=== PATIENT | male | born 1975 | race Caucasian/White ===

== ENCOUNTER 2024-07-01 14:30 | Emergency (ER) | payer OTHER, SELFPAY ==
[2024-07-01 14:46] VITALS: BP 150/96; PULSE 94; TEMP 37.1; O2SAT 98; BMI 27.3
[2024-07-01 15:04] VITALS: PULSE 96
--- NOTE | 2024-07-01 15:11 | ECG_ITS ---
[facility] Test Date: 2024-07-01 Pat Name: CHUY SABILLON Department: Room: - Gender: Male Director Of Safety: : 1975 Requested By: 1030 Order Number: [id number] Reading MD: DANK MARTINEZ Measurements Intervals [place] Rate: 92 P: 50 TN: 176 QRS: 5 QRSD: 86 T: 34 QT: 342 QTc: 392 Interpretive Statements 1100 Sinus rhythm 4068 Nonspecific [place] abnormality 9130 borderline ECG Compared to ECG 01/01/2020 17:27:29 No significant changes Electronically Signed On 07-01-2024 20:49:10 EST by DANK MARTINEZ
--- NOTE | 2024-07-01 15:12 | ED_ITS ---
HPI - Psych General Chief Complaint: Psychiatric Symptoms Stated Complaint: SUICIDAL IDEATION Time Seen by Provider: 07/01/24 15:06 Source: Reports patient Mode of arrival: walk-in Limitations: Reports no limitations History of Present Illness HPI Narrative: 49-year-old male presents to the emergency department for suicidal thoughts. He states he has had thoughts of crashing his car into a tree. He has not acted on those thoughts. He states that he has been under a lot of stress recently and has been drinking 2 fifths of vodka every day. Denies drug use or overdosing on pills. He is on an antidepressant and states he has been taking it. Related Data Home Medications ?Medication ?Instructions ?Recorded ?Confirmed atorvastatin 40 mg tablet 40 mg PO DAILY 07/01/24 07/01/24 losartan 25 mg tablet 25 mg PO DAILY 07/01/24 07/01/24 paroxetine HCl 20 mg tablet 20 mg PO DAILY 07/01/24 07/01/24 testosterone cypionate 200 mg/mL 200 mg IM .Q28 days 07/01/24 07/01/24 intramuscular oil trazodone 50 mg tablet 50 mg PO .QHS 07/01/24 07/01/24 Allergies Allergy/AdvReac Type Severity Reaction Status Date / Time amoxicillin Allergy Hives Verified 07/01/24 14:46 Review of Systems ROS Narrative A ten point review of systems is negative except as noted above. PFSH PFSH Social History Little interest or pleasure in doing things: several days Feeling down, depressed, or hopeless: more than half the days Exam Narrative Exam Narrative: Nurses note and vital signs reviewed and patient is not hypoxic. General: The patient appears well and in no apparent distress. Patient is resting comfortably on cart. Skin: Warm, dry, no pallor noted. There is no rash noted. Head: Normocephalic, atraumatic Eye: Normal conjunctiva, no drainage Ears, Nose, Mouth, and Throat: oral mucosa is moist. Nares patent. Cardiovascular: Regular Rate and Rhythm Respiratory: Patient is in no distress, no accessory muscle use, lungs are clear to auscultation, no wheezing, rales or rhonchi Back: non-tender GI: Soft and nontender. No hepatomegaly Musculoskeletal: The patient has no evidence of calf tenderness, no pitting edema, symmetrical pulses noted bilaterally Neurological: A&O, normal speech Psychiatric: Cooperative Constitutional Vital Signs, click to edit/add: Last Vital Signs Temp 98.8 F 07/01/24 14:46 Pulse 96 H 07/01/24 15:04 Resp 13 07/01/24 15:04 BP 161/104 H 07/01/24 22:59 Pulse Ox 94 L 07/01/24 22:59 O2 Del Method Room Air 07/01/24 14:46 Course Vital Signs Vital signs: Vital Signs Temperature 98.8 F 07/01/24 14:46 Pulse Rate 94 H 07/01/24 14:46 Respiratory Rate 20 07/01/24 14:46 Blood Pressure 150/96 H 07/01/24 14:46 Pulse Oximetry 98 07/01/24 14:46 Oxygen Delivery Method Room Air 07/01/24 14:46 Temperature 98.8 F 07/01/24 14:46 Pulse Rate 96 H 07/01/24 15:04 Respiratory Rate 13 07/01/24 15:04 Blood Pressure 161/104 H 07/01/24 22:59 Pulse Oximetry 94 L 07/01/24 22:59 Oxygen Delivery Method Room Air 07/01/24 14:46 MDM - Psych Lab Data Labs: Lab Results 07/01/24 07/01/24 Range/Units 15:09 15:28 WBC 4.3 (4.0-11.0) 10^3/uL RBC 5.27 (4.70-6.10) 10^6/uL Hgb 16.3 (14.0-18.0) g/dL Hct 47.9 (42.0-54.0) % MCV 90.9 (80.0-94.0) fL MCH 30.9 (25.9-34.0) pg MCHC 34.0 (29.9-35.2) g/dL RDW 14.2 (11.0-15.0) % Plt Count 205 (150-450) 10^3/uL MPV 9.3 L (9.5-13.5) fL Neut % (Auto) 62.8 (43.0-75.0) % Lymph % (Auto) 26.1 (20.5-60.0) % [place] % (Auto) 8.1 (1.7-12.0) % Eos % (Auto) 1.8 (0.9-7.0) % Baso % (Auto) 1.2 (0.2-2.0) % Neut # (Auto) 2.7 (1.4-6.5) 10^3/uL Lymph # (Auto) 1.1 L (1.2-3.8) 10^3/uL [place] # (Auto) 0.4 (0.3-0.8) 10^3/uL Eos # (Auto) 0.1 (0.0-0.7) 10^3/uL Baso # (Auto) 0.1 (0.0-0.1) 10^3/uL Abs Immat Gran (auto) 0.00 (0.00-0.03) 10^3/uL Imm/Tot Granulo (auto) 0.0 (0.0-0.5) % Sodium 140 (136-145) mmol/L Potassium 3.6 (3.5-5.1) mmol/L Chloride 103 (98-107) mmol/L Carbon Dioxide 29.0 (21.0-32.0) mmol/L Anion Gap 11.6 BUN 9.0 (7.0-18.0) mg/dL Creatinine 0.97 (0.70-1.30) mg/dL Est GFR ( Amer) >60 (>=60 mL/min/1.73m^2) Est GFR (Non-Af Amer) >60 (>=60 mL/min/1.73m^2) BUN/Creatinine Ratio 9.3 Glucose 112 H (74-106) mg/dL Calcium 8.7 (8.5-10.1) mg/dL Total Bilirubin 0.6 (0.2-1.0) mg/dL Direct Bilirubin 0.2 (0.0-0.2) mg/dL AST 56 H (15-37) U/L ALT 59 (16-63) U/L Alkaline Phosphatase 94 (46-116) U/L Total Protein 7.7 (6.4-8.2) g/dL Albumin 3.6 (3.4-5.0) g/dL Globulin 4.1 g/dL Albumin/Globulin Ratio 0.9 Urine Color Lt. yellow (YELLOW) Urine Clarity Clear (CLEAR) Urine pH 6.5 (5.0-9.0) Ur Specific [place] 1.020 (1.005-1.025) Urine Protein 30 A (NEG/TRACE) mg/dL Urine Glucose (UA) Negative (NEGATIVE) mg/dL Urine Ketones Negative (NEGATIVE) mg/dL Urine Occult Blood Moderate A (NEGATIVE) Urine Nitrite Negative (NEGATIVE) Urine Bilirubin Negative (NEGATIVE) Urine Urobilinogen 0.2 (0.2-1.0) EU/dL Ur Leukocyte Esterase Trace A (NEGATIVE) Urine RBC 0-2 (0-2) #/HPF Urine WBC 0-2 A (NONE SEEN) #/HPF Ur Squamous Epith Cells None seen (NONE/RARE) #/LPF Urine Crystals None seen (None Seen) #/HPF Urine Bacteria Trace A (NONE SEEN) #/HPF Urine Casts None seen (NONE SEEN) #/LPF Urine Mucus Trace A (NONE SEEN) Ur Culture Indicated? No Salicylates <2.8 (<=19.9) mg/dL Urine Opiates Screen Negative (NEGATIVE) Ur Buprenorphine Scrn Negative (NEGATIVE) Ur Oxycodone Screen Negative (NEGATIVE) Urine Methadone Screen Negative (NEGATIVE) Acetaminophen <2.0 L (10.0-30.0) ug/mL Ur Barbiturates Screen Negative (NEGATIVE) U Tricyclic Antidepress Negative (NEGATIVE) Ur Phencyclidine Scrn Negative (NEGATIVE) Ur Amphetamines Screen Negative (NEGATIVE) U Methamphetamines Scrn Negative (NEGATIVE) U Benzodiazepines Scrn Negative (NEGATIVE) Urine Cocaine Screen Negative (NEGATIVE) U Cannabinoids Screen Negative (NEGATIVE) Ethanol Quant 259 mg/dL ECG Data Attestation: I personally reviewed and interpreted this ECG as follows: (EKG on my interpretation shows sinus rhythm with a rate of 92 and no acute change) Discharge Plan Discharge Chief Complaint: Psychiatric Symptoms Clinical Impression: Suicidal ideation, Alcohol intoxication in active alcoholic Patient Disposition: [facility] Time of Disposition Decision: 20:03 Discharge Location: [facility] Mode of Transportation: Mental Health Car Discharge Date/Time: 07/02/24 01:17
[2024-07-01 15:26] LABS: Bilirubin Urine NEGATIVE (NEGATIVE); Blood Urine MODERATE (NEGATIVE); Clarity Urine CLEAR (CLEAR); Color Urine LT. YELLOW (YELLOW); Glucose Urine UA NEGATIVE (NEGATIVE); Ketones Urine NEGATIVE (NEGATIVE); Leukocyte Esterase Urine TRACE (NEGATIVE); Nitrite Urine NEGATIVE (NEGATIVE); Protein Urine 30 mg/dL (NEG/TRACE); Urobilinogen Urine 0.2 EU/dL (0.2-1.0); pH Urine 6.5 (5.0-9.0)
[2024-07-01 15:32] LABS: Bacteria Urine TRACE #/HPF (NONE SEEN); Cast Seen? NONE SEEN #/LPF (NONE SEEN); Crystals Seen? None Seen #/HPF (None Seen); Mucus Urine TRACE (NONE SEEN); RBC Urine 0-2 #/HPF (0-2); Squamous Epithelial Cell Urine NONE SEEN #/LPF (NONE/RARE); WBC Urine 0-2 #/HPF (NONE SEEN)
[2024-07-01 15:33] LABS: Urine Culture Indicated NO
[2024-07-01 15:34] LABS: Amphetamine Screen Urine NEGATIVE (NEGATIVE); Barbiturates Screen Urine NEGATIVE (NEGATIVE); Benzodiazepines Screen Urine NEGATIVE (NEGATIVE); Buprenorphine Screen Urine NEGATIVE (NEGATIVE); Cannabinoid Screen Urine NEGATIVE (NEGATIVE); Cocaine Screen Urine NEGATIVE (NEGATIVE); Methadone Screen Urine NEGATIVE (NEGATIVE); Methamphetamines Screen Urine NEGATIVE (NEGATIVE); Opiate Screen Urine NEGATIVE (NEGATIVE); Oxycodone Screen Urine NEGATIVE (NEGATIVE); Phencyclidine Screen Urine NEGATIVE (NEGATIVE); Tricyclic Antidepressant Urine NEGATIVE (NEGATIVE)
[2024-07-01 15:35] LABS: Basophils Absolute Auto 0.1 10^3/uL (0.0-0.1); Basophils Percent Auto 1.2 % (0.2-2.0); Eosinophils Absolute Auto 0.1 10^3/uL (0.0-0.7); Eosinophils Percent Auto 1.8 % (0.9-7.0); Hematocrit 47.9 % (42.0-54.0); Hemoglobin 16.3 g/dL (14.0-18.0); Lymphocytes Absolute Auto 1.1 10^3/uL (1.2-3.8); Lymphocytes Percent Auto 26.1 % (20.5-60.0); Mean Corpuscular Hemoglobin 30.9 pg (25.9-34.0); Mean Corpuscular Volume 90.9 fL (80.0-94.0); Mean Platelet Volume 9.3 fL (9.5-13.5); Monocytes Absolute Auto 0.4 10^3/uL (0.3-0.8); Monocytes Percent Auto 8.1 % (1.7-12.0); Neutrophils Absolute Auto 2.7 10^3/uL (1.4-6.5); Neutrophils Percent Auto 62.8 % (43.0-75.0); Platelet Count 205 10^3/uL (150-450); Red Blood Count 5.27 10^6/uL (4.70-6.10); Red Cell Distribution Width 14.2 % (11.0-15.0); White Blood Count 4.3 10^3/uL (4.0-11.0)
--- NOTE | 2024-07-01 15:48 | PC.NURSE ---
Call placed to [facility], they will call back as they are busy at this time.
[2024-07-01 15:51] LABS: Alanine Aminotransferase 59 U/L (16-63); Albumin Globulin Ratio 0.9; Albumin Level 3.6 g/dL (3.4-5.0); Alkaline Phosphatase 94 U/L (46-116); Anion Gap 11.6; Aspartate Amino Transferase 56 U/L (15-37); BUN Creatinine Ratio 9.3; Bilirubin Direct 0.2 mg/dL (0.0-0.2); Bilirubin Total 0.6 mg/dL (0.2-1.0); Calcium 8.7 mg/dL (8.5-10.1); Chloride 103 mmol/L (98-107); Estimated GFR (African America >60 (>=60 mL/min/1.73m^2); Estimated GFR (Non-African Ame >60 (>=60 mL/min/1.73m^2); Ethanol 259 mg/dL; Globulin 4.1 g/dL; Glucose 112 mg/dL (74-106); Potassium 3.6 mmol/L (3.5-5.1); Salicylate <2.8 mg/dL (<=19.9); Sodium 140 mmol/L (136-145); Total Protein 7.7 g/dL (6.4-8.2)
[2024-07-01 15:52] LABS: Acetaminophen <2.0 ug/mL (10.0-30.0)
--- NOTE | 2024-07-01 16:01 | PC.NURSE ---
Speaking with Sushma at [facility] at this time.
[2024-07-01] MEDS: LORAZEPAM 1 MG TABLET PO ×2 (16:39→23:41)
[2024-07-01] MEDS: LORAZEPAM 0.5 MG TABLET 1 MG PO (19:59)
--- NOTE | 2024-07-01 20:00 | ED.PSYCH1 ---
HPI - Psych General Chief Complaint: Psychiatric Symptoms Stated Complaint: SUICIDAL IDEATION Time Seen by Provider: 07/01/24 15:06 Source: Reports patient Mode of arrival: walk-in Limitations: Reports no limitations History of Present Illness HPI Narrative: This 49-year-old male with a history of alcohol dependence was signed out to me at shift change. He presents for suicidal ideation. His alcohol was elevated at 259. U tox is negative. The remainder of his labs were normal. He was medicated with a dose of Ativan in the emergency department. He was evaluated by [facility] with recommendation for hospitalization. She requested additional Ativan so that he does not experience alcohol withdrawal and to help him calm down. He is signing voluntarily to go to [address] Related Data Home Medications ?Medication ?Instructions ?Recorded ?Confirmed atorvastatin 40 mg tablet 40 mg PO DAILY 07/01/24 07/01/24 losartan 25 mg tablet 25 mg PO DAILY 07/01/24 07/01/24 paroxetine HCl 20 mg tablet 20 mg PO DAILY 07/01/24 07/01/24 testosterone cypionate 200 mg/mL 200 mg IM .Q28 days 07/01/24 07/01/24 intramuscular oil trazodone 50 mg tablet 50 mg PO .QHS 07/01/24 07/01/24 Allergies Allergy/AdvReac Type Severity Reaction Status Date / Time amoxicillin Allergy Hives Verified 07/01/24 14:46 PFSH PFSH Social History Little interest or pleasure in doing things: several days Feeling down, depressed, or hopeless: more than half the days Exam Constitutional Vital Signs, click to edit/add: Last Vital Signs Temp 98.8 F 07/01/24 14:46 Pulse 94 H 07/01/24 14:46 Resp 20 07/01/24 14:46 BP 150/96 H 07/01/24 14:46 Pulse Ox 98 07/01/24 14:46 O2 Del Method Room Air 07/01/24 14:46 Course Vital Signs Vital signs: Vital Signs Temperature 98.8 F 07/01/24 14:46 Pulse Rate 94 H 07/01/24 14:46 Respiratory Rate 20 07/01/24 14:46 Blood Pressure 150/96 H 07/01/24 14:46 Pulse Oximetry 98 07/01/24 14:46 Oxygen Delivery Method Room Air 07/01/24 14:46 Temperature 98.8 F 07/01/24 14:46 Pulse Rate 94 H 07/01/24 14:46 Respiratory Rate 20 07/01/24 14:46 Blood Pressure 150/96 H 07/01/24 14:46 Pulse Oximetry 98 07/01/24 14:46 Oxygen Delivery Method Room Air 07/01/24 14:46 MDM - Psych Lab Data Labs: Lab Results 07/01/24 07/01/24 Range/Units 15:09 15:28 WBC 4.3 (4.0-11.0) 10^3/uL RBC 5.27 (4.70-6.10) 10^6/uL Hgb 16.3 (14.0-18.0) g/dL Hct 47.9 (42.0-54.0) % MCV 90.9 (80.0-94.0) fL MCH 30.9 (25.9-34.0) pg MCHC 34.0 (29.9-35.2) g/dL RDW 14.2 (11.0-15.0) % Plt Count 205 (150-450) 10^3/uL MPV 9.3 L (9.5-13.5) fL Neut % (Auto) 62.8 (43.0-75.0) % Lymph % (Auto) 26.1 (20.5-60.0) % [place] % (Auto) 8.1 (1.7-12.0) % Eos % (Auto) 1.8 (0.9-7.0) % Baso % (Auto) 1.2 (0.2-2.0) % Neut # (Auto) 2.7 (1.4-6.5) 10^3/uL Lymph # (Auto) 1.1 L (1.2-3.8) 10^3/uL [place] # (Auto) 0.4 (0.3-0.8) 10^3/uL Eos # (Auto) 0.1 (0.0-0.7) 10^3/uL Baso # (Auto) 0.1 (0.0-0.1) 10^3/uL Abs Immat Gran (auto) 0.00 (0.00-0.03) 10^3/uL Imm/Tot Granulo (auto) 0.0 (0.0-0.5) % Sodium 140 (136-145) mmol/L Potassium 3.6 (3.5-5.1) mmol/L Chloride 103 (98-107) mmol/L Carbon Dioxide 29.0 (21.0-32.0) mmol/L Anion Gap 11.6 BUN 9.0 (7.0-18.0) mg/dL Creatinine 0.97 (0.70-1.30) mg/dL Est GFR ( Amer) >60 (>=60 mL/min/1.73m^2) Est GFR (Non-Af Amer) >60 (>=60 mL/min/1.73m^2) BUN/Creatinine Ratio 9.3 Glucose 112 H (74-106) mg/dL Calcium 8.7 (8.5-10.1) mg/dL Total Bilirubin 0.6 (0.2-1.0) mg/dL Direct Bilirubin 0.2 (0.0-0.2) mg/dL AST 56 H (15-37) U/L ALT 59 (16-63) U/L Alkaline Phosphatase 94 (46-116) U/L Total Protein 7.7 (6.4-8.2) g/dL Albumin 3.6 (3.4-5.0) g/dL Globulin 4.1 g/dL Albumin/Globulin Ratio 0.9 Urine Color Lt. yellow (YELLOW) Urine Clarity Clear (CLEAR) Urine pH 6.5 (5.0-9.0) Ur Specific [place] 1.020 (1.005-1.025) Urine Protein 30 A (NEG/TRACE) mg/dL Urine Glucose (UA) Negative (NEGATIVE) mg/dL Urine Ketones Negative (NEGATIVE) mg/dL Urine Occult Blood Moderate A (NEGATIVE) Urine Nitrite Negative (NEGATIVE) Urine Bilirubin Negative (NEGATIVE) Urine Urobilinogen 0.2 (0.2-1.0) EU/dL Ur Leukocyte Esterase Trace A (NEGATIVE) Urine RBC 0-2 (0-2) #/HPF Urine WBC 0-2 A (NONE SEEN) #/HPF Ur Squamous Epith Cells None seen (NONE/RARE) #/LPF Urine Crystals None seen (None Seen) #/HPF Urine Bacteria Trace A (NONE SEEN) #/HPF Urine Casts None seen (NONE SEEN) #/LPF Urine Mucus Trace A (NONE SEEN) Ur Culture Indicated? No Salicylates <2.8 (<=19.9) mg/dL Urine Opiates Screen Negative (NEGATIVE) Ur Buprenorphine Scrn Negative (NEGATIVE) Ur Oxycodone Screen Negative (NEGATIVE) Urine Methadone Screen Negative (NEGATIVE) Acetaminophen <2.0 L (10.0-30.0) ug/mL Ur Barbiturates Screen Negative (NEGATIVE) U Tricyclic Antidepress Negative (NEGATIVE) Ur Phencyclidine Scrn Negative (NEGATIVE) Ur Amphetamines Screen Negative (NEGATIVE) U Methamphetamines Scrn Negative (NEGATIVE) U Benzodiazepines Scrn Negative (NEGATIVE) Urine Cocaine Screen Negative (NEGATIVE) U Cannabinoids Screen Negative (NEGATIVE) Ethanol Quant 259 mg/dL Discharge Plan Discharge Chief Complaint: Psychiatric Symptoms Clinical Impression: Suicidal ideation, Alcohol intoxication in active alcoholic Patient Disposition: [facility] Time of Disposition Decision: 20:03 Discharge Location: [facility] Mode of Transportation: Mental Health Car Prescriptions / Home Meds: No Action atorvastatin 40 mg tablet 40 mg PO DAILY losartan 25 mg tablet 25 mg PO DAILY paroxetine HCl 20 mg tablet 20 mg PO DAILY Patient Comments: Has not taken in several weeks testosterone cypionate 200 mg/mL oil 200 mg IM .Q28 days trazodone 50 mg tablet 50 mg PO .QHS Print Language: [place] Referrals: Cisco Nieto ND [Primary Care Provider] - 1 week
[2024-07-01 22:59] VITALS: BP 161/104; O2SAT 94
== END 2024-07-02 01:17 ==
PROVIDERS: Emergency Medicine; Emergency Provider Emergency Medicine; PCP Student in an Organized Health Care Education/Training Program
DX: R45.851 Suicidal ideations (principal); F32.A Depression, unspecified; F10.229 Alcohol dependence with intoxication, unspecified; Y90.8 Blood alcohol level of 240 mg/100 ml or more
CPT/HCPCS: 36415; 80048; 80076; 80179; 80307; 80320; 80329; 81001; 85025; 93005; 99285

== ENCOUNTER 2024-10-22 01:30 | Emergency (ER) | payer OTHER, SELFPAY ==
--- OUTSIDE RECORDS SUMMARY | 2024-07-17 14:41 | XMS_ITS ---
Author Organization OHIP Care Team Providers Care Residential Interior Designer Name Role Phone DEVORA CORRALES Attending Unavailable SAVANNA, MUHAMID M Referring Unavailable SAVANNA, MUHAMID M Primary Care Unavailable CRESENCIO RICHARDSON Attending Unavailable SAVANNA, MUHAMID M Referring Unavailable SAVANNA, MUHAMID M Primary Care Unavailable SAVANNA, MUHAMID M Attending Unavailable ASVANNA, MUHAMID M Referring Unavailable SAVANNA, MUHAMID M Primary Care Unavailable Savanna, Muhamid Primary Care Unavailable Betty Mirmi Admitting Unavailable Kyle Mir Attending Unavailable Irais Payne Attending Unavailable NON STAFF Primary Care Unavailable Irais Payne Admitting Unavailable Savanna, Muhamid Primary Care Unavailable Dillan Valdez Admitting Unavailab le Dillan Valdez Attending Unavailab le Purpose PROBLEMS DATE TYPE CONDITION / CODE ATTENDING STATUS [facility] 10/07/2022 Unknown Essential (prima ry) hypertension / I10(ICD-10) YUE CORRALESID M Active [facility] 07/17/2024 Unknown Attention-defici t hyperactivity disorder, unspecified type / F90.9(ICD-10) DEVORA CORRALES M Active [facility] 07/17/2024 Unknown Atherosclerotic heart disease of [place] coronary artery without angina pectoris / I25.10(ICD-10) [facility] 07/17/2024 Unknown Med Management / [facility](A[facility]) [facility] 07/02/2024 Unknown Major depressive disorder, recurrent, unspecified / F33.9(ICD-10) [facility] 07/02/2024 Unknown Major depressive disorder, single episode, unspecified / F32.9(ICD-10) [facility] 07/02/2024 Unknown Alcohol use, unspecified, uncomplicated / F10.90(ICD-10) [facility] 12/04/2023 Unknown Dizziness and gi ddiness / R42(ICD-10) Irais Payne [facility] 11/01/2023 Unknown Endocrine disord er, unspecified / E34.9(ICD-10) [facility] PROCEDURES No Procedure Records Found VITAL SIGNS No Vital Signs Records Found RESULTS ECG 12 LEAD ECG Observed: 07/02/2024 7:33 AM Status: COMPLETED Source: [facility] [place] [address] Electrocardiograph Report Signed Patient: Román Sabillon MR#: [id number] : 1975 Acct:[id number] Age/Sex: 49 / M ADM Date: 07/02/24 Loc: Room: [address] [place] [address] Type: ADM IN Attending Dr: Kyle Mir MD Ordering Provider: Kyle Mir MD Date of Service: 07/02/2409/20/499 ECG/ECG 12 lead ECG: ANTIPSYCHOTIC THERAPY Copies to: Test Reason : Blood Pressure : */* mmHG Vent. Rate : 76 BPM Atrial Rate : 76 BPM P-R Int : 166 ms QRS Dur : 100 ms QT Int : 378 ms P-R-T Axes : 46 32 1 degrees QTcB Int : 425 ms Normal sinus rhythm with sinus arrhythmia Normal ECG When compared with ECG of 08-Brian-2024 20:15, No significant change was found Confirmed by MICHELLE LEVY, MATEO ([id number]) on 07/02/2024 6:27:32 PM Referred By: Electronically Signed By: MATEO MATTHEWS MD Transcribed By: MUS Signed By Mateo Matthews MD 0 07/02/24 1827 LIPID PANEL Collected: 07/02/2024 5:18 AM Status: F Source: [facility] TYPE CODE TESTS RESULT OUT OF RANGE REFERENCE UNITS LAB CHOL Cholesterol 239 High 140-200 mg/dL Result Comment: Chol less th an 200 mg/dl low risk Chol 201-239 mg/dl borderline risk Chol 240 mg/dl and greater high risk LAB HDL HDL Cholesterol 119 High 23-92 mg/dL Result Comment: HDL CHOL ATP -III CLASSIFICATION Cardiovascular Risk HDL > or equal to 60 mg/dL LOW HDL < 40 mg/dL HIGH LAB TRIG W REF Triglyceride w/Reflex 73 Normal 0-149 mg/dL Result Comment: TRIG ATP III CLASSIFICATION TRIG less than 150 mg/dL Normal TRIG 150-199 mg/dL Borderline high TRIG 200-500 mg/dL High TRIG greater than 500 mg/dL Very high Standard traceable to the Center for Disease Conrtrol and Prevention (CDC) test method. LAB LDLC LDL Cholesterol,Calc ulated 105 High 0-100 mg/dL Result Comment: LDL ATP III CLASSIFICATION LDL less than 100 mg/dL Optimal LDL 100-129 mg/dL Near or above optimal LDL 130-159 mg/dL Borderline high LDL 160-189 mg/dL High LDL greater than 189 mg/dL Very high LAB VLDL VLDL CHOLESTEROL 14 mg/dL LAB CHLHDL Chol/HDL Ratio 2.0 <5.0 Performed By: #### [id number], TSH3 wRFLX, LIPID #### [facility] [id number] [facility] THYROID STIM HORMONE W/RFLX Collected: 07/02/2024 5:18 AM Status: F Source: [facility] TYPE CODE TESTS RESULT OUT OF RANGE REFERENCE UNITS LAB TSH3 wRFLX Thyroid Stim Hormone w/Rflx 3.09 Normal 0.45-5.33 u[iU]/mL Performed By: #### [id number], TSH3 wRFLX, LIPID #### [facility] [address] [id number] [facility] VITAMIN D 25 HYDROXY TOTAL Collected: 07/02/2024 5:18 AM Status: F Source: [facility] TYPE CODE TESTS RESULT OUT OF RANGE REFERENCE UNITS LAB [id number] Vitamin D 25 Hydroxy Total 20.2 Low 30-100 ng/mL Result Comment: VITAMIN D ST ATUS 25(OH)VITAMIN D RANGE (ng/mL) Deficient <20 Insufficient 20 to <30 Sufficient 30 to 100 Reference: Gina MF,Christine NC, Farhana FERRARA, et al. Evaluation,treatment, and prevention of vitamin D deficiency; an Endocrine Society clinical practice guideline. JCEM. 2010; 96(7):1911-30. PERFORMED BY: [place] [address] PATHOLOGIST FIRE POT OPERATOR MAIA OCAMPO M.D. Performed By: #### [id number], TSH3 wRFLX, LIPID #### [place] [id number] [facility] XR CHEST 1V PORTABLE Observed: 9:04 AM Status: COMPLETED Source: [facility] Main [place] [id number] XRay Report Signed Patient: Román Sabillon MR#: [id number] : 1975 Acct:[id number] Age/Sex: 48 / M ADM Date: 12/04/23 Loc: ER Room: Type: [facility] ER Attending Dr: Copies to: Irais Payne MD Ordering Provider: Irais Payne MD Date of Service: 12/05/23 XR/XR chest 1V portable: Dizziness XR chest 1V portable 12/05/2023 2:24 AM SIGNS AND SYMPTOMS: Dizziness, nausea, vomiting PROTOCOL: Frontal radiograph chest COMPARISON: None FINDINGS: The trachea is midline. The heart and mediastinal structures are within normal limits. There is linear scarring or atelectasis in the right perihilar region with mild interstitial prominence bilaterally. The lung parenchyma is clear, otherwise. The bony thorax is intact. XR/XR chest 1V portable IMPRESSION: There is linear scarring or atelectasis in the right perihilar region with mild interstitial prominence bilaterally. The lung parenchyma is clear, otherwise. Impression dictated by: Álvaro Edgar M.D.12/05/2023 9:08 AM Dictation Location: [place] [address] Transcribed By: [facility] 12/05/23907 Dictated By: Álvaro Edgar II, MD 12/05/23903 Signed By: <Electronically signed by Álvaro Edgar II, MD in OV> 12/05/23907 DIPSTICK AND MICROSCOPIC Collected: 01/2024 1:55 AM Status: F Source: [facility] Order Comment: Name Collecti on Type:: Clean-Voided Midstream TYPE CODE TESTS RESULT OUT OF RANGE REFERENCE UNITS LAB UCOL Color,Urine Yellow Yellow LAB UAPP Appearance,Ur ine Clear Clear LAB USG Specificy Micro,Urine 1.027 Normal 1.001-1.030 LAB UPH pH,Urine 7.0 Normal 5.0-9.0 LAB ULE Leukocyte Esterase,Urin e Negative Negative LAB UNIT Nitrite,Urine Negative Negative LAB UPRO Protein,Urine 30 High Negative mg/dL LAB UGL Glucose,Urine (UA) Normal Normal LAB UKET Ketones,Urine Negative Negative LAB UURO Urobilinogen, Urine Normal Normal LAB UBIL Bilirubin,Uri ne Negative Negative LAB UBLD Occult Blood,Urine 1+ High Negative Result Comment: PERFORMED BY : [place] [address] PATHOLOGIST FIRE POT OPERATOR JAUN WEISS M.D. LAB URBC RBC,Urine 5-9 High 0-4 LAB UWBC WBC,Urine 1-2 0-4 LAB UBACT Bacteria,Urin e None Seen None Seen LAB UHYALC Hyaline Casts,Urine None 0-8 LAB MUCUS Mucus,Urine 3+ Abnormal Alert Result Comment: PERFORMED BY : [address] [address] PATHOLOGIST FIRE POT OPERATOR JAUN WEISS M.D. Performed By: #### ADDONUAPL #### [place] [id number] [facility] TROPONIN I HIGH SENSITIVITY Collected: 12/05/2023 12: 30 AM Status: F Source: [facility] TYPE CODE TESTS RESULT OUT OF RANGE REFERENCE UNITS LAB HS TROP Troponin I High Sensitivity 4.2 Normal 0.0-20.0 pg/mL Result Comment: PERFORMED BY : [place] [address] PATHOLOGIST FIRE POT OPERATOR JAUN WEISS M.D. Performed By: #### HS TROP # ### [address] COMPLETE BLOOD COUNT AUTO DIFF Collected: 12/04/2023 10:37 PM Status: F Source: [facility] TYPE CODE TESTS RESULT OUT OF RANGE REFERENCE UNITS LAB WBC White Blood Count 5.1 Normal 4.1-10.5 10*3/uL LAB UNWBC Uncorrected WBC 5.1 Normal 4.1-10.5 10*3/uL LAB RBC Red Blood Count 5.53 Normal 3.90-5.60 LAB HGB Hemoglobin 16.3 Normal 13.0-17.0 g/dL LAB HCT Hematocrit 47.9 Normal 38.8-50.0 % LAB MCV Mean Corpuscular Volume 86.6 Normal 83.5-101 fL LAB MCH Mean Corpuscular Hemoglobin 29.4 Normal 27.5-35.2 pg LAB MCHC Mean Corpuscular HGB Conc 34.0 Normal 32.5-35.6 g/dL LAB RDW Red Cell Distribution Width 14.1 Normal 12.0-14.8 % LAB PLT Platelet Count 171 Normal 150-450 10*3/uL LAB MPV Mean Platelet Volume 8.6 Normal 6.6-10.1 fL LAB MDW Monocyte Distribution Width 17.02 Normal 0.00-20.00 % LAB NE% Neutrophils % (Auto) 70.0 . % LAB LY% Lymphocytes % (Auto) 23.8 . % LAB MO% Monocytes % (Auto) 5.1 . % LAB EO% Eosinophils % (Auto) 0.3 . % LAB BA% Basophils % (Auto) 0.8 . % LAB NRBC% NRBC% 0.2 Normal 0-0.5 /100{WBC } LAB NE# Neutrophils # (Auto) 3.6 Normal 1.8-7.7 10*3/uL LAB LY# Lymphocytes # (Auto) 1.2 Normal 1.00-4.8 10*3/uL LAB MO# Monocytes # (Auto) 0.3 Normal 0.0-0.8 10*3/uL LAB EO# Eosinophils # (Auto) 0.0 Normal 0.0-0.45 10*3/uL LAB BA# Basophils # (Auto) 0.0 Normal 0.0-0.2 10*3/uL Result Comment: PERFORMED BY : [place] [address] PATHOLOGIST FIRE POT OPERATOR JAUN WEISS M.D. Performed By: #### CMP, CBC, CK, HS TROP #### [facility] [address] COMPREHENSIVE METABOLIC PANEL Collected: 12/04/2023 1 0:37 PM Status: F Source: [facility] TYPE CODE TESTS RESULT OUT OF RANGE REFERENCE UNITS LAB GLU Glucose 141 High 70-100 mg/dL Result Comment: Random Gluco se Reference Range is dependent on time and content of last meal. Glucose of more than 200 mg/dL in a nonstressed, ambulatory subject supports the diagnosis of Diabetes Mellitus. ADA recommended reference range LAB BUN Blood Urea Nitrogen 14 Normal 7-25 mg/d L LAB CREATT Creatinine 0.96 Normal 0.70-1.30 mg/dL LAB GFReNR Estimated GFR > 60.0 LAB NA Sodium 136 Normal 136-145 mmol/L LAB K Potassium 4.0 Normal 3.5-5.1 mmol/L LAB CL Chloride 105 Normal 98-107 mmol/L LAB CO2 Carbon Dioxide 24.0 Normal 21.0-31.0 mmol/L LAB GAP Anion Gap 11.0 Normal 6.0-15.0 LAB CA Calcium 9.0 Normal 8.6-10.3 mg/dL LAB TP Total Protein 7.6 Normal 6.4-8.9 g/dL LAB ALB Albumin Level 4.3 Normal 3.5-5.7 g/dL LAB GLOB Globulin 3.3 g/dL LAB AGRATIO Albumin/Globulin Ratio 1.3 LAB BILIT Bilirubin,Total 0.8 Normal 0.3-1.0 mg/dL LAB AST Aspartate Amino Transferase 47 High 13-39 U/L LAB ALT Alanine Aminotransferase 43 Normal 7-52 U/L LAB ALP Alkaline Phosphatase 90 Normal 34-104 U/L Result Comment: PERFORMED BY : [place] [address] PATHOLOGIST FIRE POT OPERATOR JAUN WEISS M.D. Performed By: #### CMP, CBC, CK, HS TROP #### [place] [id number] [facility] CREATINE KINASE Collected: 10:37 PM Status: F Source: [facility] TYPE CODE TESTS RESULT OUT OF RANGE REFERENCE UNITS LAB CK Creatine Kinase 133 Normal 30-223 U/L Performed By: #### CMP, CBC, CK, HS TROP #### [address] TROPONIN I HIGH SENSITIVITY Collected: 12/04/2023 10: 37 PM Status: F Source: [facility] TYPE CODE TESTS RESULT OUT OF RANGE REFERENCE UNITS LAB HS TROP Troponin I High Sensitivity 3.8 Normal 0.0-20.0 pg/mL Result Comment: PERFORMED BY : [place] [address] PATHOLOGIST FIRE POT OPERATOR JAUN WEISS M.D. Performed By: #### CMP, CBC, CK, HS TROP #### [place] [id number] [facility] ECG 12 LEAD ECG Observed: 12/04/2023 8:15 PM Status: COMPLETED Source: [facility] [place] [address] Electrocardiograph Report Signed Patient: Román Sabillon MR#: [id number] : 1975 Acct:[id number] Age/Sex: 48 / M ADM Date: 12/04/23 Loc: ER Room: Type: [facility] ER Attending Dr: Ordering Provider: Irais Payne MD Date of Service: 12/04/2301/19/2007 ECG/ECG 12 lead ECG: Dizziness Copies to: Test Reason : Blood Pressure : / mmHG Vent. Rate : 080 BPM Atrial Rate : 080 BPM P-R Int : 166 ms QRS Dur : 094 ms QT Int : 372 ms P-R-T Axes : 056 025 015 degrees QTc Int : 429 ms Normal sinus rhythm Nonspecific t wave abnormality in lead III No previous ECGs available Confirmed by Irais Payne MD ([id number]) on 12/05/2023 3:38:25 AM Referred By: Electronically Signed By:Irais Payne MD Transcribed By: MUS Signed By Irais Payne MD 02/19 0338 ALLERGIES DATE TYPE / CODE NAME / CODE REACTION SEVERITY SOURCE 08/11/2017 DRUG INGREDI/[id number](S NOMED CT) AMOXICILLIN Hives Med [facility] ENCOUNTERS ADMIT/DISCHARGE ACCOUNT NUMBER ADMITTING ENCOUNTER CLASS LOCATION SOURCE 07/17/2024/ 025 [id number] Ambulatory Buildin A [facility] 07/02/2024/ 025 [id number] Kyle Mir Inpatient Encounter [facility] nSRoom: [id number]: 2 [facility] 07/01/2024 [id number] Dillan Valdez Ambulatory [facility] ng:CREDIBETTY E [facility] 04/29/2024/ 024 [id number] Ambulatory Buildin A [facility] 12/04/2023/ 024 [id number] Irais Payne [facility] ng:ER [facility] 11/01/2023/ 024 [id number] [address] [place] [address] Ambulatory [facility] FUNCTIONAL STATUS No Functional Status Records Found EQUIPMENT No Equipment Records Found PAYERS ENCOUNTER GUARANTOR PAYER SUBSCRIBER SOURCE 07/17/2024 ROMÁN COLLADOB: [address] [address]Sdq: (HP) Primary Insurance:[employer] EMPLOYEESPolicy Number: [id number] Date:2017-05-29 ROMÁN COLLADOB: [id number] [address] [address]Uip: (HP) (WP) [facility] 07/02/2024 Román Henry0 [address] [address]Psm: (HP) Primary Insurance:Self PayPolicy Number: Effective Date:2024-07-[address] [facility]24 Román Beyerdon[address] [place] [address]Zyv: (HP) Primary Insurance:Self PayPolicy Number: Effective Date:2024-07-[address] [facility] 04/[facility]/2024 ROMÁN Voss TOBIASB: [address] [place] [address]Fow: (HP) Primary Insurance:[employer] EMPLOYEESPolicy Number: [id number] Date:2017-05-29 ROMÁN Voss TOBIASB: [id number] [address]Vqi: (HP) () [facility] 12/04/2023 Román Voss [id number] [address] [address]Usl: (HP) Primary Insurance:Paramount[employer] cy Number: [id number] Date:[id number] [address]SJ: Román Voss TobiasB: [id number] [address] [address]Dsi: (HP) [facility] 12/04/2023 Secondary Insurance:Self PayPolicy Number: Effective Date:2023-12-[address] [facility] 11/01/2023 ROMÁN Voss TOBIASB: [address] [address]Bha: (HP) Primary Insurance:[employer] EMPLOYEESPolicy Number: [id number] Date:2017-05-29 ROMÁN Voss RAMANDEEPDOB: [id number] [address] [address]Ayr: (HP) (WP) [facility] SOCIAL HISTORY No Social History Records Found FAMILY HISTORY No Family History Records Found No Status Records Found ADVANCE DIRECTIVES No Advanced Directives Records Found INFORMATION SOURCE DATE CREATED AUTHOR AUTHOR'S ORGANIZ ATION 10/22/2024 [facility]
[2024-10-22 01:52] VITALS: BP 151/101; PULSE 78; TEMP 37.1; O2SAT 97; BMI 28.7
--- NOTE | 2024-10-22 02:20 | ED.PSYCH1 ---
HPI - Psych General Chief Complaint: Psychiatric Symptoms Stated Complaint: PSYCHIATRIC SYMPTOMS Time Seen by Provider: 10/22/24 02:14 Source: Reports patient Limitations: Reports no limitations History of Present Illness HPI Narrative: patient is an alcoholic. last drink about 5 hours ago. History of depression and feels suicidal. Wants to but no plan. States has been hospitalized in the past for mental health. Denies injury to himself tonight or ingestion of pills Related Data Home Medications ?Medication ?Instructions ?Recorded ?Confirmed atorvastatin 40 mg tablet 40 mg PO DAILY 07/01/24 07/01/24 losartan 25 mg tablet 25 mg PO DAILY 07/01/24 07/01/24 paroxetine HCl 20 mg tablet 20 mg PO DAILY 07/01/24 07/01/24 testosterone cypionate 200 mg/mL 200 mg IM .Q28 days 07/01/24 07/01/24 intramuscular oil trazodone 50 mg tablet 50 mg PO .QHS 07/01/24 07/01/24 Allergies Allergy/AdvReac Type Severity Reaction Status Date / Time amoxicillin Allergy Hives Verified 10/22/24 01:52 Review of Systems ROS Status of ROS 10 or more systems reviewed and unremarkable except as noted in history and below PFSH PFSH Social History Little interest or pleasure in doing things: several days Feeling down, depressed, or hopeless: several days Exam Constitutional Vital Signs, click to edit/add: Last Vital Signs Temp 98.8 F 10/22/24 01:52 Pulse 78 10/22/24 01:52 Resp 19 10/22/24 01:52 BP 151/101 H 10/22/24 01:52 Pulse Ox 97 10/22/24 01:52 O2 Del Method Room Air 10/22/24 01:52 Common normals: no apparent distress, average body habitus, oriented x3, no limitations, healthy appearing, alert and well nourished [facility] Common normals: normocephalic and head/scalp atraumatic Eye Common normals: EOMs intact bilaterally Respiratory Common normals: normal respiratory effort, no retractions, no use of accessory muscles and clear to auscultation bilaterally Cardio Common normals: regular rate, regular rhythm, S1 normal heart sound and S2 normal heart sound Extremity Common normals: normal to inspection and full ROM Neuro Common normals: oriented x3, CN's II-XII intact bilaterally, moves all extremities and no focal motor deficits Psych Appearance: grossly normal Course Vital Signs Vital signs: Vital Signs Temperature 98.8 F 10/22/24 01:52 Pulse Rate 78 10/22/24 01:52 Respiratory Rate 19 10/22/24 01:52 Blood Pressure 151/101 H 10/22/24 01:52 Pulse Oximetry 97 10/22/24 01:52 Oxygen Delivery Method Room Air 10/22/24 01:52 Temperature 98.8 F 10/22/24 01:52 Pulse Rate 78 10/22/24 01:52 Respiratory Rate 19 10/22/24 01:52 Blood Pressure 151/101 H 10/22/24 01:52 Pulse Oximetry 97 10/22/24 01:52 Oxygen Delivery Method Room Air 10/22/24 01:52 MDM - Psych MDM Narrative Medical decision making narrative: alcoholic presents complaining of depression and suicidal thoughts. Past history of psychiatric in patient admissions. labs with elevated alcohol level 270. Remaining labs not able to be performed due to lipemia. Repeat alcohol ordered Lab Data Labs: Lab Results 10/22/24 10/22/24 Range/Units 02:20 03:54 WBC 4.1 (4.0-11.0) 10^3/uL RBC 5.29 (4.70-6.10) 10^6/uL Hgb 17.6 (14.0-18.0) g/dL Hct 46.4 (42.0-54.0) % MCV 87.7 (80.0-94.0) fL MCH 33.3 (25.9-34.0) pg MCHC 37.9 H (29.9-35.2) g/dL RDW 15.8 H (11.0-15.0) % Plt Count 231 (150-450) 10^3/uL MPV 11.3 (9.5-13.5) fL Neut % (Auto) 72.2 (43.0-75.0) % Lymph % (Auto) 20.7 (20.5-60.0) % [place] % (Auto) 5.2 (1.7-12.0) % Eos % (Auto) 0.2 L (0.9-7.0) % Baso % (Auto) 0.5 (0.2-2.0) % Neut # (Auto) 2.9 (1.4-6.5) 10^3/uL Lymph # (Auto) 0.8 L (1.2-3.8) 10^3/uL [place] # (Auto) 0.2 L (0.3-0.8) 10^3/uL Eos # (Auto) 0.0 (0.0-0.7) 10^3/uL Baso # (Auto) 0.0 (0.0-0.1) 10^3/uL Abs Immat Gran (auto) 0.05 H (0.00-0.03) 10^3/uL Imm/Tot Granulo (auto) 1.2 H (0.0-0.5) % Urine Opiates Screen Negative (NEGATIVE) Ur Buprenorphine Scrn Negative (NEGATIVE) Ur Oxycodone Screen Negative (NEGATIVE) Urine Methadone Screen Negative (NEGATIVE) Ur Barbiturates Screen Negative (NEGATIVE) U Tricyclic Antidepress Negative (NEGATIVE) Ur Phencyclidine Scrn Negative (NEGATIVE) Ur Amphetamines Screen Negative (NEGATIVE) U Methamphetamines Scrn Negative (NEGATIVE) U Benzodiazepines Scrn Negative (NEGATIVE) Urine Cocaine Screen Negative (NEGATIVE) U Cannabinoids Screen Negative (NEGATIVE) Discharge Plan Discharge Patient Disposition: Still a Patient
[2024-10-22 02:35] LABS: Basophils Percent Auto 0.5 % (0.2-2.0); Eosinophils Percent Auto 0.2 % (0.9-7.0); Hematocrit 46.4 % (42.0-54.0); Hemoglobin 17.6 g/dL (14.0-18.0); Immature Granulocytes Abs Auto 0.05 10^3/uL (0.00-0.03); Immature Granulocytes Pct Auto 1.2 % (0.0-0.5); Lymphocytes Absolute Auto 0.8 10^3/uL (1.2-3.8); Lymphocytes Percent Auto 20.7 % (20.5-60.0); Mean Corpuscular HGB Conc 37.9 g/dL (29.9-35.2); Mean Corpuscular Hemoglobin 33.3 pg (25.9-34.0); Mean Corpuscular Volume 87.7 fL (80.0-94.0); Mean Platelet Volume 11.3 fL (9.5-13.5); Monocytes Absolute Auto 0.2 10^3/uL (0.3-0.8); Monocytes Percent Auto 5.2 % (1.7-12.0); Neutrophils Absolute Auto 2.9 10^3/uL (1.4-6.5); Neutrophils Percent Auto 72.2 % (43.0-75.0); Platelet Count 231 10^3/uL (150-450); Red Blood Count 5.29 10^6/uL (4.70-6.10); Red Cell Distribution Width 15.8 % (11.0-15.0); White Blood Count 4.1 10^3/uL (4.0-11.0)
[2024-10-22 04:20] LABS: Amphetamine Screen Urine NEGATIVE (NEGATIVE); Barbiturates Screen Urine NEGATIVE (NEGATIVE); Benzodiazepines Screen Urine NEGATIVE (NEGATIVE); Cannabinoid Screen Urine NEGATIVE (NEGATIVE); Cocaine Screen Urine NEGATIVE (NEGATIVE); Methadone Screen Urine NEGATIVE (NEGATIVE); Methamphetamines Screen Urine NEGATIVE (NEGATIVE); Opiate Screen Urine NEGATIVE (NEGATIVE); Oxycodone Screen Urine NEGATIVE (NEGATIVE); Phencyclidine Screen Urine NEGATIVE (NEGATIVE); Tricyclic Antidepressant Urine NEGATIVE (NEGATIVE)
[2024-10-22 04:21] LABS: Buprenorphine Screen Urine NEGATIVE (NEGATIVE)
--- NOTE | 2024-10-22 07:10 | PC.NURSE ---
assumed care for this pt, pt sleeping on er cart
[2024-10-22 07:53] LABS: Acetaminophen <2.0 ug/mL (10.0-30.0)
[2024-10-22 07:55] LABS: Ethanol 273 mg/dL; Salicylate <2.8 mg/dL (<=19.9)
[2024-10-22] MEDS: DIAZEPAM 5 MG TABLET PO (07:55)
[2024-10-22 08:36] LABS: Ethanol 194 mg/dL
[2024-10-22 08:51] VITALS: BP 134/79; PULSE 79; TEMP 36.9; O2SAT 99
--- NOTE | 2024-10-22 09:00 | PC.NURSE ---
introduced myself to pt, he is awake and alert x 3
--- NOTE | 2024-10-22 09:15 | PC.NURSE ---
speaking with pt, he is calm alert x 3, asking to speak with his s/o if possible, we do not have her number, per pt is she calls it is ok to share information about this ER visit. Pt s/o name is Lola Mcgraw
--- NOTE | 2024-10-22 10:00 | PC.NURSE ---
Thania from [facility] line speaking with pt via telephone at this time
[2024-10-22] MEDS: NICOTINE 21 MG PATCH.TD24 TD (10:28)
--- NOTE | 2024-10-22 10:54 | ED.GENADUL1 ---
HPI HPI - General Adult General Chief complaint: Psychiatric Symptoms Stated complaint: PSYCHIATRIC SYMPTOMS Time Seen by Provider: 10/22/24 02:14 Source: patient Limitations: no limitations History of Present Illness HPI narrative: 49-year-old male presents to the emergency department and was initially seen by Dr. Gardner and signed out to me after discussing the case with him thoroughly. Please see his full history and physical exam. Related Data Home Medications ?Medication ?Instructions ?Recorded ?Confirmed atorvastatin 40 mg tablet 40 mg PO DAILY 07/01/24 07/01/24 losartan 25 mg tablet 25 mg PO DAILY 07/01/24 07/01/24 paroxetine HCl 20 mg tablet 20 mg PO DAILY 07/01/24 07/01/24 testosterone cypionate 200 mg/mL 200 mg IM .Q28 days 07/01/24 07/01/24 intramuscular oil trazodone 50 mg tablet 50 mg PO .QHS 07/01/24 07/01/24 Allergies Allergy/AdvReac Type Severity Reaction Status Date / Time amoxicillin Allergy Hives Verified 10/22/24 01:52 Opioid HPI Opioid Management Most Recent Opioid Data: Ur Phencyclidine Scrn, (NEGATIVE) Negative Today, 03:54 PFSH PFSH Social History Little interest or pleasure in doing things: several days Feeling down, depressed, or hopeless: several days Exam Constitutional Vital Signs, click to edit/add: Last Vital Signs Temp 98.5 F 10/22/24 08:51 Pulse 79 10/22/24 08:51 Resp 18 10/22/24 08:51 BP 134/79 10/22/24 08:51 Pulse Ox 99 10/22/24 08:51 O2 Del Method Room Air 10/22/24 08:51 Course Vital Signs Vital signs: Vital Signs Temperature 98.8 F 10/22/24 01:52 Pulse Rate 78 10/22/24 01:52 Respiratory Rate 19 10/22/24 01:52 Blood Pressure 151/101 H 10/22/24 01:52 Pulse Oximetry 97 10/22/24 01:52 Oxygen Delivery Method Room Air 10/22/24 01:52 Temperature 98.5 F 10/22/24 08:51 Pulse Rate 79 10/22/24 08:51 Respiratory Rate 18 10/22/24 08:51 Blood Pressure 134/79 10/22/24 08:51 Pulse Oximetry 99 10/22/24 08:51 Oxygen Delivery Method Room Air 10/22/24 08:51 Medical Decision Making MDM Narrative Medical decision making narrative: The patient has been evaluated by mental health services and the plan is for admission at [facility] to [facility]. Differential Diagnosis Differential Diagnosis: Depression, suicidal ideation, alcohol intoxication Lab Data Lab results reviewed: Yes I reviewed the patient's lab results Labs: Lab Results 10/22/24 10/22/24 10/22/24 Range/Units 02:20 03:54 08:22 WBC 4.1 (4.0-11.0) 10^3/uL RBC 5.29 (4.70-6.10) 10^6/uL Hgb 17.6 (14.0-18.0) g/dL Hct 46.4 (42.0-54.0) % MCV 87.7 (80.0-94.0) fL MCH 33.3 (25.9-34.0) pg MCHC 37.9 H (29.9-35.2) g/dL RDW 15.8 H (11.0-15.0) % Plt Count 231 (150-450) 10^3/uL MPV 11.3 (9.5-13.5) fL Neut % (Auto) 72.2 (43.0-75.0) % Lymph % (Auto) 20.7 (20.5-60.0) % Winston % (Auto) 5.2 (1.7-12.0) % Eos % (Auto) 0.2 L (0.9-7.0) % Baso % (Auto) 0.5 (0.2-2.0) % Neut # (Auto) 2.9 (1.4-6.5) 10^3/uL Lymph # (Auto) 0.8 L (1.2-3.8) 10^3/uL Winston # (Auto) 0.2 L (0.3-0.8) 10^3/uL Eos # (Auto) 0.0 (0.0-0.7) 10^3/uL Baso # (Auto) 0.0 (0.0-0.1) 10^3/uL Abs Immat Gran (auto) 0.05 H (0.00-0.03) 10^3/uL Imm/Tot Granulo (auto) 1.2 H (0.0-0.5) % Salicylates <2.8 (<=19.9) mg/dL Urine Opiates Screen Negative (NEGATIVE) Ur Buprenorphine Scrn Negative (NEGATIVE) Ur Oxycodone Screen Negative (NEGATIVE) Urine Methadone Screen Negative (NEGATIVE) Acetaminophen <2.0 L (10.0-30.0) ug/mL Ur Barbiturates Screen Negative (NEGATIVE) U Tricyclic Antidepress Negative (NEGATIVE) Ur Phencyclidine Scrn Negative (NEGATIVE) Ur Amphetamines Screen Negative (NEGATIVE) U Methamphetamines Scrn Negative (NEGATIVE) U Benzodiazepines Scrn Negative (NEGATIVE) Urine Cocaine Screen Negative (NEGATIVE) U Cannabinoids Screen Negative (NEGATIVE) Ethanol Quant 273 194 mg/dL Discharge Plan Discharge Chief Complaint: Psychiatric Symptoms Clinical Impression: Suicidal ideation, Alcohol intoxication Patient Disposition: [facility] Time of Disposition Decision: 10:54 Discharge Location: [facility] Condition: Fair Mode of Transportation: EMS
[2024-10-22 11:08] LABS: BOX Test Reference Lab FRMC; BOX Test Sent Out CMP
[2024-10-22] MEDS: LORAZEPAM 1 MG TABLET PO (11:09)
--- NOTE | 2024-10-22 12:12 | PC.NURSE ---
report called to Cierra GUERRERO at [address]
--- NOTE | 2024-10-22 12:34 | PC.NURSE ---
[facility] here for pt transport
== END 2024-10-22 12:52 ==
PROVIDERS: Internal Medicine; Emergency Provider Emergency Medicine; PCP Student in an Organized Health Care Education/Training Program
DX: R45.851 Suicidal ideations (principal); F10.129 Alcohol abuse with intoxication, unspecified; Y90.8 Blood alcohol level of 240 mg/100 ml or more; F32.A Depression, unspecified
CPT/HCPCS: 36415; 80053; 80179; 80307; 80320; 80329; 85025; 99285